=== PATIENT | female | born 1990 | race Hispanic/Latino ===

== ENCOUNTER 2017-09-13 14:45 | Inpatient (IN) | payer MEDICAID ==
[~2017-09-13] VITALS: Ht 162.6 cm; Wt 62.1 kg
[~2017-09-13 14:45] MED LIST: ACET1TAB12 PO; FERR325T22 PO
[2017-09-14 14:37] LABS: HEMATOCRIT 27.7 % (36-48); MEAN CORPUSCULAR HEMOGLOBIN 23.5 pg (27.0-33.0); MEAN CORPUSCULAR HGB CONC 31.2 g/dL (32.0-36.0); MEAN CORPUSCULAR VOLUME 75.2 fL (79-99); PLATELET COUNT (AUTO) 322 K/uL (130-400); RED BLOOD CELL COUNT(AUTO) 3.68 MIL/uL (4.00-5.50); RED CELL DISTRIBUTION WIDTH 17.7 % (11.0-15.5); WHITE BLOOD COUNT (AUTO) 13.4 K/uL (4.8-10.8)
[2017-09-15] MEDS ORDERED: LACTATED RINGERS 1000ML 1,000 ML IV SCH (06:00)
[2017-09-15] MEDS ORDERED: CLINDAMYCIN 900 MG/D5% WATER 50 ML IVPB PRN (06:30)
[2017-09-15] MEDS ORDERED: GENTAMICIN SULFATE 240 MG in SODIUM CHLORIDE 0.9% 100 ML IV SCH (06:30)
[2017-09-15 06:54] LABS: AMPHET/METH SCREEN,URINE NEGATIVE (NEGATIVE); BARBITURATE SCREEN, URINE NEGATIVE (NEGATIVE); BENZODIAZEPINES SCREEN,URINE POSITIVE (NEGATIVE); CANNABINOID SCREEN,URINE NEGATIVE (NEGATIVE); COCAINE SCREEN,URINE NEGATIVE (NEGATIVE); OPIATE SCREEN,URINE NEGATIVE (NEGATIVE); PHENCYCLIDINE SCREEN,URINE NEGATIVE (NEGATIVE)
[2017-09-15 07:23] LABS: HEPATITIS Bs ANTIGEN SCREEN P Negative (Negative)
[2017-09-15] MEDS ORDERED: HYDROMORPHONE 1 MG/1 ML AMP ONE ×3 (07:51→18:23)
[2017-09-15] MEDS ORDERED: OXYTOCIN-LR 20 UNITS/1000 ML 1,000 ML IV PRN (09:31)
[2017-09-15] MEDS ORDERED: SODIUM CHLORIDE 0.9% 10 ML VIAL IVP PRN (09:45)
[2017-09-15] MEDS ORDERED: PROMETHAZINE HCL 25 MG/ML 1ML AMPULE IM PRN (10:00)
[2017-09-15] MEDS ORDERED: HYDROCODONE/ACETAMINOPHEN 5/325 MG TAB PO PRN (10:00)
[2017-09-15] MEDS ORDERED: METOCLOPRAMIDE 10 MG/2 ML VIAL IVP PRN (10:00)
[2017-09-15] MEDS ORDERED: EPHEDRINE SULFATE 50 MG/ML AMPULE IVP PRN (10:00)
[2017-09-15] MEDS ORDERED: ONDANSETRON HCL 4 MG/2 ML VIAL IVP PRN ×2 (10:00)
[2017-09-15] MEDS ORDERED: ONDANSETRON HCL 4 MG/2 ML 8 MG in SODIUM CHLORIDE 0.9% 50 ML IVP NR (10:00)
[2017-09-15] MEDS ORDERED: NALOXONE HCL 0.4 MG/1 ML ML IVP PRN (10:00)
[2017-09-15] MEDS ORDERED: DiphenhydrAMINE HCL 50 MG/ML VIAL IVP PRN (10:00)
[2017-09-15 12:07] VITALS: BP 95/63
[2017-09-15] MEDS ORDERED: ALPR1TAB2 PO (14:10)
[2017-09-15] MEDS ORDERED: PNV1TABL17 PO (14:10)
[2017-09-15] MEDS ORDERED: OXYTOCIN 10 USP UNITS/ML ONE (15:22)
[2017-09-15 15:39] VITALS: BP 93/58
[2017-09-15] MEDS: HYDROMORPHONE HCL 0.5 MG/0.5 ML ML IVP PRN (18:42)
[2017-09-15 19:53] VITALS: BP 107/65
[2017-09-15] MEDS: DEXTROSE 5 %-0.45 % NACL 1,000 ML IV PRN (22:12)
[2017-09-15 23:48] VITALS: BP 111/49
[2017-09-16 04:10] VITALS: BP 116/70
[2017-09-16] MEDS ORDERED: HYDROMORPHONE HCL 0.5 MG/0.5 ML ML ONE (04:11)
[2017-09-16] MEDS: HYDROMORPHONE HCL 0.5 MG/0.5 ML ML IVP PRN (04:19)
[2017-09-16] MEDS: DEXTROSE 5 %-0.45 % NACL 1,000 ML IV PRN (04:19)
[2017-09-16 06:36] LABS: HEMATOCRIT 25.6 % (36-48); MEAN CORPUSCULAR HEMOGLOBIN 23.2 pg (27.0-33.0); MEAN CORPUSCULAR HGB CONC 31.4 g/dL (32.0-36.0); PLATELET COUNT (AUTO) 259 K/uL (130-400); RED BLOOD CELL COUNT(AUTO) 3.46 MIL/uL (4.00-5.50); RED CELL DISTRIBUTION WIDTH 18.1 % (11.0-15.5); WHITE BLOOD COUNT (AUTO) 17.2 K/uL (4.8-10.8)
[2017-09-16 08:00] VITALS: BP 105/66
[2017-09-16] MEDS: HYDROCODONE/ACETAMINOPHEN 5/325 MG TAB PO PRN ×2 (08:32→17:20)
[2017-09-16] MEDS ORDERED: ACETAMINOPHEN EXTRA STRENGTH 500 MG TABLET PO PRN (11:30)
[2017-09-16] MEDS ORDERED: BISACODYL 10 MG SUPP.RECT RC PRN (11:30)
[2017-09-16 11:36] VITALS: BP 97/55
[2017-09-16] MEDS: SIMETHICONE 80 MG TAB.CHEW PO PRN ×2 (12:45→17:20)
[2017-09-16] MEDS: IBUPROFEN 800 MG TAB PO SCH ×2 (12:46→20:01)
[2017-09-16 16:07] VITALS: BP 102/60
[2017-09-16 20:00] VITALS: BP 112/68
[2017-09-16] MEDS: DOCUSATE SODIUM 100 MG CAP PO SCH (20:01)
[2017-09-17 00:27] VITALS: BP 106/60
[2017-09-17] MEDS: IBUPROFEN 800 MG TAB PO SCH ×3 (03:20→18:20)
[2017-09-17 03:26] VITALS: BP 101/51
[2017-09-17] MEDS ORDERED: HYDROCODONE/ACETAMINOPHEN 5/325 MG TAB PO PRN (07:45)
[2017-09-17] MEDS ORDERED: LEVOTHYROXINE 25 MCG TABLET PO SCH (07:45)
[2017-09-17 08:00] VITALS: BP 100/67
[2017-09-17] MEDS: DOCUSATE SODIUM 100 MG CAP PO SCH ×2 (09:40→20:28)
[2017-09-17 12:07] VITALS: BP 120/69
[2017-09-17] MEDS: SIMETHICONE 80 MG TAB.CHEW PO PRN ×3 (13:13→20:28)
[2017-09-17] MEDS: LIDOCAINE 5% TOPICAL PATCH TP SCH (13:17)
[2017-09-17 16:00] VITALS: BP 91/55
[2017-09-17 20:10] VITALS: BP 107/59
[2017-09-17] MEDS: ACETAMINOPHEN-CODEINE 300/30MG TAB PO PRN (20:29)
[2017-09-18 00:30] VITALS: BP 104/67
[2017-09-18] MEDS: ACETAMINOPHEN-CODEINE 300/30MG TAB PO PRN ×2 (00:42→08:07)
[2017-09-18 03:35] VITALS: BP 105/57
[2017-09-18] MEDS: IBUPROFEN 800 MG TAB PO SCH ×2 (03:42→11:49)
[2017-09-18 08:00] VITALS: BP 106/67
[2017-09-18] MEDS: SIMETHICONE 80 MG TAB.CHEW PO PRN ×2 (08:06→11:49)
[2017-09-18] MEDS: LIDOCAINE 5% TOPICAL PATCH TP SCH (08:07)
[2017-09-18] MEDS: DOCUSATE SODIUM 100 MG CAP PO SCH (08:11)
[2017-09-18 11:28] VITALS: BP 96/56
== END 2017-09-18 15:00 | disposition home or self-care (01) | DRG 540 ==
LOC: LDH 09-15 05:38 → WSH 09-15 12:12
PROVIDERS: ADMIT Specialist; ATTEND Specialist
PROC: 10D00Z1 Extraction of Products of Conception, Low, Open Approach (ICD-10-PCS; 2017-09-15)
PROC: 0UB70ZZ Excision of Bilateral Fallopian Tubes, Open Approach (ICD-10-PCS; principal; 2017-09-15 08:00)
DX: O34.211 Maternal care for low transverse scar from previous cesarean delivery (principal); Z30.2 Encounter for sterilization; Z37.0 Single live birth; Z3A.39 39 weeks gestation of pregnancy; Z88.1 Allergy status to other antibiotic agents; Z88.0 Allergy status to penicillin; Z88.8 Allergy status to other drugs, medicaments and biological substances
CPT/HCPCS: 36415; 59510; 80305; 85027; 86592; 86850; 86900; 86901; 87340; 88302; A4344; A4606; J1170; J1580; J2405; J2590; J3490; J7120

== ENCOUNTER 2018-01-07 11:05 | Emergency (ER) | payer MEDICAID, OTHER ==
[~2018-01-07 11:05] MED LIST changes: +PNV1TABL17 PO
[2018-01-07 11:21] LABS: APPEARANCE,URINE Clear (CLEAR); BILIRUBIN,URINE Negative (NEGATIVE); COLOR,URINE Yellow (YELLOW); GLUCOSE, URINE (UA) Negative (NEGATIVE); KETONES,URINE Negative (NEGATIVE); LEUKOCYTE ESTERASE ,URINE Negative (NEGATIVE); NITRATE,URINE Negative (NEGATIVE); OCCULT BLOOD,URINE Negative (NEGATIVE); PH,URINE 5.5 (5.0-8.0); PROTEIN,URINE Negative (NEGATIVE)
[2018-01-07 11:24] LABS: HCG,QUAL RESULT NEGATIVE (NEGATIVE)
[2018-01-07 11:30] LABS: AMPHET/METH SCREEN,URINE NEGATIVE (NEGATIVE); BARBITURATE SCREEN, URINE NEGATIVE (NEGATIVE); BENZODIAZEPINES SCREEN,URINE POSITIVE (NEGATIVE); CANNABINOID SCREEN,URINE NEGATIVE (NEGATIVE); COCAINE SCREEN,URINE NEGATIVE (NEGATIVE); OPIATE SCREEN,URINE NEGATIVE (NEGATIVE); PHENCYCLIDINE SCREEN,URINE NEGATIVE (NEGATIVE)
[2018-01-07] MEDS ORDERED: KETOROLAC TROMETHAMINE 60 MG/2 ML VIAL ONE (11:48)
[2018-01-07 12:38] LABS: BASOPHILS % (AUTO) 0.5 % (0.0-5.0); EOSINOPHILS % (AUTO) 1.8 % (0.0-8.0); HEMATOCRIT 31.6 % (36-48); LYMPHOCYTES % (AUTO) 22.5 % (21.0-51.0); MEAN CORPUSCULAR HEMOGLOBIN 25.4 pg (27.0-33.0); MEAN CORPUSCULAR HGB CONC 32.9 g/dL (32.0-36.0); MEAN CORPUSCULAR VOLUME 77.3 fL (79-99); MONOCYTES % (AUTO) 8.6 % (3.0-13.0); NEUTROPHILS % (AUTO) 66.6 % (40.0-77.0); PLATELET COUNT (AUTO) 397 K/uL (130-400); RED BLOOD CELL COUNT(AUTO) 4.09 MIL/uL (4.00-5.50); RED CELL DISTRIBUTION WIDTH 16.1 % (11.0-15.5); WHITE BLOOD COUNT (AUTO) 6.6 K/uL (4.8-10.8)
[2018-01-07 12:45] LABS: CREATININE 0.7 mg/dL (0.5-1.5); POTASSIUM 4.2 mmol/L (3.5-5.1)
== END 2018-01-07 13:28 | disposition home or self-care (01) ==
LOC: EDH 11:05
DX: S23.3XXA Sprain of ligaments of thoracic spine, initial encounter (principal); Z88.6 Allergy status to analgesic agent; Z98.890 Other specified postprocedural states; X58.XXXA Exposure to other specified factors, initial encounter; Y93.89 Activity, other specified; Y92.89 Other specified places as the place of occurrence of the external cause; Y99.8 Other external cause status
CPT/HCPCS: 36415; 80048; 80305; 81003; 81025; 85025; 85378; 96372; 99284; J1885

== ENCOUNTER 2019-03-28 18:27 | Emergency (ER) | payer OTHER ==
[2019-03-28 19:03] LABS: BASOPHILS % (AUTO) 0.5 % (0.0-5.0); EOSINOPHILS % (AUTO) 0.6 % (0.0-8.0); HEMATOCRIT 41.6 % (36-48); MEAN CORPUSCULAR HEMOGLOBIN 28.6 pg (27.0-33.0); MEAN CORPUSCULAR HGB CONC 33.2 g/dL (32.0-36.0); MEAN CORPUSCULAR VOLUME 86.4 fL (79-99); MONOCYTES % (AUTO) 6.4 % (3.0-13.0); NEUTROPHILS % (AUTO) 67.5 % (40.0-77.0); NUCLEATED RED BLOOD CELLS 0.1 % (0.0-0.19); PLATELET COUNT (AUTO) 362 K/uL (130-400); RED BLOOD CELL COUNT(AUTO) 4.82 MIL/uL (4.00-5.50); RED CELL DISTRIBUTION WIDTH 15.5 % (11.0-15.5)
[2019-03-28 19:13] LABS: CREATININE 0.8 mg/dL (0.5-1.5); POTASSIUM 3.4 mmol/L (3.5-5.1)
[2019-03-28 19:17] LABS: ALBUMIN 4.9 g/dL (3.5-5.0); BILIRUBIN,TOTAL 2.2 mg/dL (0.2-1.0); TOTAL PROTEIN, SERUM 8.6 g/dL (6.0-8.3)
[2019-03-28] MEDS ORDERED: ONDANSETRON HCL 4 MG/2 ML VIAL ONE (19:19)
[2019-03-28] MEDS ORDERED: KETOROLAC TROMETHAMINE 15MG/ML ONE (19:19)
[2019-03-28] MEDS ORDERED: SODIUM CHLORIDE 0.9% 1000ML 1,000 ML IV ONE (19:19)
[2019-03-28 19:34] LABS: APPEARANCE,URINE Cloudy (CLEAR); BILIRUBIN,URINE Negative (NEGATIVE); COLOR,URINE Yellow (YELLOW); GLUCOSE, URINE (UA) Negative (NEGATIVE); KETONES,URINE 40 mg/dL (NEGATIVE); LEUKOCYTE ESTERASE ,URINE Negative (NEGATIVE); NITRATE,URINE Negative (NEGATIVE); OCCULT BLOOD,URINE Negative (NEGATIVE); PROTEIN,URINE Negative (NEGATIVE)
[2019-03-28 19:39] LABS: HCG,QUAL RESULT NEGATIVE (NEGATIVE)
[2019-03-28 19:41] LABS: BACTERIA,URINE Few /HPF (None Seen); RBC,URINE 0-1 /HPF (0-1); SQUAMOUS EPITHELIAL CELL,UR Few /HPF (0-2); WBC,URINE 0-1 /HPF (0-1)
[2019-03-28 19:42] LABS: AMORPHOUS SEDIMENT,UR Few /LPF (None Seen); AMPHET/METH SCREEN,URINE NEGATIVE (NEGATIVE); BARBITURATE SCREEN, URINE NEGATIVE (NEGATIVE); BENZODIAZEPINES SCREEN,URINE POSITIVE (NEGATIVE); CANNABINOID SCREEN,URINE NEGATIVE (NEGATIVE); COCAINE SCREEN,URINE NEGATIVE (NEGATIVE); OPIATE SCREEN,URINE NEGATIVE (NEGATIVE); PHENCYCLIDINE SCREEN,URINE NEGATIVE (NEGATIVE)
== END 2019-03-28 20:43 | disposition home or self-care (01) ==
LOC: EDH 18:27
DX: S29.012A Strain of muscle and tendon of back wall of thorax, initial encounter (principal); R05 Cough; R11.2 Nausea with vomiting, unspecified; J45.909 Unspecified asthma, uncomplicated; F41.9 Anxiety disorder, unspecified; Z88.5 Allergy status to narcotic agent; Z88.1 Allergy status to other antibiotic agents; X58.XXXA Exposure to other specified factors, initial encounter; Y93.89 Activity, other specified; Y92.89 Other specified places as the place of occurrence of the external cause; Y99.8 Other external cause status
CPT/HCPCS: 36415; 71045; 76705; 80053; 80305; 81001; 81025; 85025; 96361; 96374; 96375; 99285; J1885; J2405; J7030

== ENCOUNTER 2025-09-06 23:56 | Emergency (ER) | payer SELFPAY ==
[~2025-09-06] VITALS: Ht 162.6 cm; Wt 72.6 kg
--- NOTE | 2025-09-07 00:30 | ERN ---
ED Note History of Present Illness Stated Complaint: " LUPUS FLARE" Chief Complaint: Other Problems Time Seen by MD: 00:15 Dictation: Patient has presented to the ER complaining of pain to her whole-body, said she has history of systemic lupus erythematosus, said she is taking tramadol and Tylenol 3 at home without resolution of her pain. Allergies: Coded Allergies: morphine (Unverified Allergy, Severe, SHORTNESS OF BREATH, 12/13/15) levofloxacin (Unverified Allergy, Mild, NAUSEA/VOMITING, 12/13/15) amoxicillin (Unverified Allergy, Unknown, 09/15/17) azithromycin (Unverified Allergy, Unknown, 12/28/22) clavulanic acid (Unverified Allergy, Unknown, 09/15/17) Home Meds Active Scripts Ibuprofen (Ibuprofen) 600 Mg Tablet, 1 TAB PO TID for pain for 10 Days, #30 TAB 0 Refills with food Prov:RACHEL MONSALVE MD 09/07/25 Reported Medications Pnv Cmb#21/Iron/Folic Acid ( Complete [place]) 1 Each Tablet, 1 EACH PO DAILY, TAB 09/15/17 Ferrous Sulfate (Ferrous Sulfate) 325 Mg Tablet, 325 MG PO DAILYDINNER PRN for ANEMIA, #30 TAB 01/24/16 Acetaminophen with Codeine (Tylenol with Codeine #3 Tablet) 1 Each Tablet, 1-2 TAB PO Q4HPRN PRN for PAIN, #30 TAB 01/24/16 Past Medical History Past Medical History: Other Additional Past Medical Hx: LUPUS Surgical History: Other, Surgical History Other: RT KNEE Review of System Dictation NEGATIVE EXCEPT PER HPI Constitutional: Negative for fever,chills, and weight loss, whole-body pain Eyes: Negative for injury, pain,redness, and discharge ENT: Negative for injury,pain or swelling Cardiovascular: denies chest pain, palpitations, and edema Respiratory: Negative for shortness of breath, cough, and wheezing, Abdomen/GI: Negative for abdominal pain, nausea, vomiting, diarrhea, and constipation Back: Negative for injury and pain : Negative for injury, bleeding and discharge MS/Extremity: Negative for injury and deformity Skin: Negative for rash, and discoloration Neuro: Negative for headache, weakness, numbness, tingling, and seizure Psych: Negative for suicide ideation, homicidal ideation, and hallucinations Initial Vital Sign VS Vital Signs Date Time Temp Pulse Resp B/P (MAP) Pulse Ox O2 Delivery O2 Flow Rate FiO2 09/06/25 23:57 97.9 72 20 131/67 98 Room Air 09/07/25 01:21 0 21 Physical Exam Dictation General: awake, alert, NAD Head/Face: Normocephalic, atraumatic Eyes: PERRL, EOMI, vision at baseline ENT: oral cavity clear, TMs clear, no signs of infection Neck: Trachea midline, supple, no nuchal rigidity Cardiovascular: RRR, normal S1/S2, No MRGs, no JVD Respiratory: CTAB, no respiratory distress, No rales or wheezes Abdomen: Soft , no tender Skin: Warm, dry, normal turgor, no rash MS/Extremity: Pulses equal, no cyanosis, neurovascular intact, FROM Neuro: COAx4, GCS 15, strength 5/5, CN 2-12 intact, normal cerebellar exam, normal gait, Psych: Normal behavior, mood, and affect normal Results (Laboratory/Radiology) Laboratory/Radiology Laboratory Tests Test 09/07/25 00:22 09/07/25 00:32 Urine Color LIGHT-YELLOW (YELLOW) Urine Appearance CLEAR (CLEAR) Urine pH 7.0 (5.0-8.0) Urine Specific [place] 1.014 (1.001-1.031) Urine Protein NEGATIVE mg/dL (NEGATIVE) Urine Glucose (UA) >=1000 mg/dL (NEGATIVE) H Urine Ketones NEGATIVE mg/dL (NEGATIVE) Urine Occult Blood NEGATIVE (NEGATIVE) Urine Nitrate NEGATIVE (NEGATIVE) Urine Bilirubin NEGATIVE mg/dL (NEGATIVE) Urine Urobilinogen 0.2 mg/dL (0.2-1.0) Urine Leukocyte Esterase NEGATIVE Cirsta/uL White Blood Count 28.7 K/uL (4.8-10.8) H Red Blood Count 3.86 MIL/uL (4.00-5.50) L Hemoglobin 10.0 g/dL (12.0-16.0) L Hematocrit 30.9 % (36-48) L Mean Corpuscular Volume 80.1 fL (79-99) Mean Corpuscular Hemoglobin 25.9 pg (27.0-33.0) L Mean Corpuscular Hemoglobin Concent 32.4 g/dL (32.0-36.0) Red Cell Distribution Width 16.8 % (11.0-15.5) H Platelet Count 542 K/uL (130-400) H Mean Platelet Volume 11.2 fL (7.5-10.5) H Immature Granulocyte % (Auto) 1.0 % (0-1) Neutrophils (%) (Auto) 86.3 % (40.0-77.0) H Lymphocytes (%) (Auto) 7.8 % (21.0-51.0) L Monocytes (%) (Auto) 4.7 % (3.0-13.0) Eosinophils (%) (Auto) 0.0 % (0.0-8.0) Basophils (%) (Auto) 0.2 % (0.0-5.0) Neutrophils # (Auto) 24.8 K/uL (1.8-7.7) H Lymphocytes # (Auto) 2.2 K/uL (1.0-4.8) Monocytes # (Auto) 1.4 K/uL (0.1-1.0) H Eosinophils # (Auto) 0.00 K/uL (0.00-0.70) Basophils # (Auto) 0.05 K/uL (0.00-0.20) Absolute Immature Granulocyte (auto 0.29 K/uL (0-1) Nucleated Red Blood Cells 0.0 % (0.0-0.19) White Cell Morphology Comment See comments Erythrocyte Sedimentation Rate 29 MM/HR (0-20) H Sodium Level 136 mmol/L (136-145) Potassium Level 3.7 mmol/L (3.5-5.1) Chloride Level 105 mmol/L (101-111) Carbon Dioxide Level 25 mmol/L (21-32) Blood Urea Nitrogen 11 mg/dL (7-18) Creatinine 0.8 mg/dL (0.5-1.0) Glomerular Filtration Rate Calc 100 mL/min (>90) Random Glucose 161 mg/dL (70-105) H Total Calcium 8.9 mg/dL (8.5-10.1) Serum Test, Qualitative NEGATIVE (NEGATIVE) ED Course ED Course Orders Procedure Category Date Status Time Cbc With Differential LAB 09/07/25 Complete 00:19 Basic Metabolic Panel LAB 09/07/25 Complete 00:19 Testing, LAB 09/07/25 Complete Serum Hcg 00:21 Erythrocyte Sed Rate LAB 09/07/25 Complete 00:25 Urinalysis Profile LAB 09/07/25 Complete 00:25 Ketorolac PHA 09/07/25 Complete Tromethamine 30mg/Ml 01:30 Methylprednisolone PHA 09/07/25 Complete Succ 40mg (Solu-Medro 01:30 Current Medications Medications (Trade) Dose Ordered Sig/Kirsten Route PRN Reason Start Time Stop Time Status Last Admin Dose Admin Ketorolac Tromethamine (toRADol) 30 mg ONCE ONCE IVP 09/07/25 01:30 09/07/25 01:29 DC 09/07/25 01:14 Methylprednisolone Sodium Succinate (Solu-medROL 40MG) 40 mg ONCE ONCE IVP 09/07/25 01:30 09/07/25 01:29 DC 09/07/25 01:14 Vital Signs Date Time Temp Pulse Resp B/P (MAP) Pulse Ox O2 Delivery O2 Flow Rate FiO2 09/07/25 01:21 98.4 60 18 126/76 98 Room Air* 0 21 09/06/25 23:57 97.9 72 20 131/67 98 Room Air Medical Decision Making MDM Patient stated that she has history of lupus erythematosus has been having flare-up which stated that she has pain affecting her whole body. History she is taking tramadol and Tylenol 3 at home. On my examination the patient looks calm, doubt if she is on pain or not. CBC, BMP,[place], [place] [id number] Patient is a afebrile. Ketorolac 30 mg ordered Steroids ordered DX & DISP Disposition: Discharge Departure Impression: Primary Impression: Lupus (systemic lupus erythematosus) Condition: Stable Scripts Ibuprofen (Ibuprofen) 600 Mg Tablet 1 TAB PO TID for pain for 10 Days, #30 TAB 0 Refills with food Prov: RACHEL MONSALVE MD 09/07/25 Referrals: HELLEN LAND MD (PCP) RACHEL MONSALVE MD Sep 07, 2025 00:30
[2025-09-07 00:45] LABS: CREATININE 0.8 mg/dL (0.5-1.0); GLOMERULAR FILTR. RATE CALC 100.0 mL/min (>90); GLUCOSE,RANDOM 161.0 mg/dL (70-105); SODIUM SERUM 136.0 mmol/L (136-145); UREA NITROGEN, BLOOD 11.0 mg/dL (7-18)
[2025-09-07 00:47] LABS: APPEARANCE,URINE CLEAR (CLEAR); GLUCOSE, URINE (UA) >=1000 mg/dL (NEGATIVE); LEUKOCYTE ESTERASE ,URINE NEGATIVE Leu/uL (NEGATIVE); NITRATE,URINE NEGATIVE (NEGATIVE); OCCULT BLOOD,URINE NEGATIVE (NEGATIVE)
[2025-09-07 00:48] LABS: ADD UA MICROSCOPIC NO
[2025-09-07 00:58] LABS: IMMATURE GRANULOCYTE ABSOLUTE 0.29 K/uL (0-1); NUCLEATED RED BLOOD CELLS 0.0 % (0.0-0.19); PLATELET COUNT (AUTO) 542 K/uL (130-400); RED BLOOD CELL COUNT(AUTO) 3.86 MIL/uL (4.00-5.50); RED CELL DISTRIBUTION WIDTH 16.8 % (11.0-15.5); WHITE BLOOD COUNT (AUTO) 28.7 K/uL (4.8-10.8)
[2025-09-07] MEDS ORDERED: IBUP-1492 PO (01:10)
[2025-09-07] MEDS: Solu-medROL 40MG VIAL IVP ONE (01:14)
[2025-09-07 01:21] VITALS: BP 126/76; PULSE 60; RESP 18; TEMP 98.4; O2SAT 98
== END 2025-09-07 01:29 | disposition home or self-care (01) ==
LOC: EDH 23:56
DX: M32.9 Systemic lupus erythematosus, unspecified (principal); Z88.5 Allergy status to narcotic agent; Z88.1 Allergy status to other antibiotic agents; Z88.0 Allergy status to penicillin; Z79.1 Long term (current) use of non-steroidal anti-inflammatories (NSAID); Z79.899 Other long term (current) drug therapy; Z98.890 Other specified postprocedural states
CPT/HCPCS: 99284; 80048; 84703; 85025; 85651; 81003; 36415; 96374; 96375; J1885; J2919